=== PATIENT | male | born 1990 | race Caucasian/White ===

== ENCOUNTER 2020-06-09 13:53 | Emergency (ER) | payer MEDICAID ==
[~2020-06-09] VITALS: Ht 175.3 cm; Wt 64.0 kg
[2020-06-09 14:00] VITALS: BP 125/65
[2020-06-09] MEDS ORDERED: ACETAMINOPHEN 325 MG TABLET ONE (14:21)
[2020-06-09] MEDS ORDERED: ACETAMINOPHEN 325 MG TABLET PO ONE (14:30)
--- NOTE | 2020-06-09 15:10 | NUR ---
ALL RESULTS ARE BACK AT THIS TIME. CHART UP FOR RECHECK.
== END 2020-06-09 15:51 | disposition home or self-care (01) ==
LOC: ED 15:04
DX: S90.32XA Contusion of left foot, initial encounter (principal); X58.XXXA Exposure to other specified factors, initial encounter; Y93.89 Activity, other specified; Y92.830 Public park as the place of occurrence of the external cause; Y99.8 Other external cause status
CPT/HCPCS: 99283

== ENCOUNTER 2020-06-11 09:47 | Emergency (ER) | payer MEDICAID ==
[~2020-06-11] VITALS: Ht 175.3 cm; Wt 65.9 kg
[2020-06-11 09:56] VITALS: BP 116/59
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
[2020-06-11 10:32] LABS: BASOPHILS # (AUTO) 0.04 x10^3/uL (0-0.1); BASOPHILS % (AUTO) 0 % (0-1); EOSINOPHILS # (AUTO) 0.08 x10^3/uL (0-0.4); EOSINOPHILS % (AUTO) 1 % (1-7); LYMPHOCYTES # (AUTO) 1.31 x10^3/uL (1-3.4); LYMPHOCYTES % (AUTO) 13 % (22-44); MD NO; MEAN CORPUSCULAR HEMOGLOBIN 32.6 pg (27.5-34.5); MEAN CORPUSCULAR HGB CONC 33.1 g/dL (33.2-36.2); MEAN CORPUSCULAR VOLUME 98.4 fL (81-97); MEAN PLATELET VOLUME 7.4 fL (7.4-10.4); MONOCYTES # (AUTO) 0.71 x10^3/uL (0.2-0.8); MONOCYTES % (AUTO) 7 % (2-9); NEUTROPHILS # (AUTO) 7.98 x10^3/uL (1.8-6.8); NEUTROPHILS % (AUTO) 79 % (42-75); PLATELET COUNT 316 x10^3/uL (130-400); RED BLOOD COUNT 4.68 x10^6/uL (4.38-5.82); RED CELL DISTRIBUTION WIDTH 13.4 % (9.4-14.8)
[2020-06-11 10:41] LABS: ANION GAP 6 mmol/L (5-15); CALCIUM 9.4 mg/dL (8.5-10.1); CHLORIDE 109 mmol/L (98-107); CREATININE 1.04 mg/dL (0.7-1.3); SALICYLATE LEVEL 3.6 mg/dL (2.8-20.0)
--- NOTE | 2020-06-11 10:51 | NUR ---
resting in bed NAD on legal hold. as
--- NOTE | 2020-06-11 11:01 | NUR ---
JANNA POLLOCK AT BEDSIDE
--- NOTE | 2020-06-11 11:39 | NUR ---
psych Fermin was in room, pt tbdc when done eating. as
== END 2020-06-11 12:44 | disposition home or self-care (01) ==
LOC: ED 10:30
DX: F33.9 Major depressive disorder, recurrent, unspecified (principal); R45.851 Suicidal ideations; F17.200 Nicotine dependence, unspecified, uncomplicated
CPT/HCPCS: 36415; 80048; 80307; 82040; 85025; 99284

== ENCOUNTER 2020-07-30 22:04 | Emergency (ER) | payer MEDICAID ==
[~2020-07-30] VITALS: Ht 175.3 cm; Wt 63.2 kg
--- NOTE | 2020-07-30 23:21 | NUR ---
Patient presents to ER c/o diarrhea with low abd pain. Patient states this started with "yellow snot" and progressed to the abd. Patient has a slight cough. Patient is in NAD. Respirations even and unlabored.
[2020-07-30] MEDS ORDERED: ONDANSETRON ODT 4 MG ONE (23:29)
[2020-07-30] MEDS ORDERED: ONDANSETRON ODT 4 MG PO ONE (23:30)
[2020-07-30 23:42] LABS: BASOPHILS % (AUTO) 0 % (0-1); EOSINOPHILS % (AUTO) 1 % (1-7); LYMPHOCYTES % (AUTO) 20 % (22-44); MEAN CORPUSCULAR HEMOGLOBIN 32.9 pg (27.5-34.5); MEAN CORPUSCULAR HGB CONC 33.9 g/dL (33.2-36.2); MEAN PLATELET VOLUME 7.6 fL (7.4-10.4); MONOCYTES % (AUTO) 14 % (2-9); NEUTROPHILS % (AUTO) 65 % (42-75); PLATELET COUNT 336 x10^3/uL (130-400); RED BLOOD COUNT 4.94 x10^6/uL (4.38-5.82); RED CELL DISTRIBUTION WIDTH 15.1 % (9.4-14.8)
[2020-07-30 23:45] LABS: MD NO
[2020-07-30 23:47] LABS: MICROSCOPIC NOT IND
[2020-07-30 23:56] LABS: ALBUMIN 4.2 g/dL (3.4-5.0); CALCIUM 9.3 mg/dL (8.5-10.1); CHLORIDE 107 mmol/L (98-107)
[2020-07-31 00:01] LABS: ALANINE AMINOTRANSFERASE 33 U/L (12-78); ALKALINE PHOSPHATASE 79 U/L (45-117); BILIRUBIN,TOTAL 0.5 mg/dL (0.2-1.0); CREATININE 1.04 mg/dL (0.7-1.3); TOTAL PROTEIN 7.9 g/dL (6.4-8.2)
[2020-07-31 00:18] LABS: ANION GAP 5 mmol/L (5-15)
[2020-07-31 00:56] VITALS: BP 121/68
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
== END 2020-07-31 01:26 | disposition home or self-care (01) ==
LOC: ED 23:17
DX: K52.9 Noninfective gastroenteritis and colitis, unspecified (principal); M54.5 Low back pain; G89.29 Other chronic pain
CPT/HCPCS: 36415; 80053; 81003; 83690; 85025; 99283; Q0162

== ENCOUNTER 2020-08-09 15:40 | Emergency (ER) | payer MEDICAID ==
[~2020-08-09] VITALS: Ht 175.3 cm; Wt 58.6 kg
--- NOTE | 2020-08-09 18:05 | NUR ---
PATIENT ARRIVES BODY ACHES, SORENESS, MUCOUS, CONGESTION. THIS BEGAN THREE DAYS AGO
--- NOTE | 2020-08-09 18:47 | NUR ---
BEDSIDE REPORT FROM TYRONE RN, PT CARE TRANSFERRED AT THIS TIME.
[2020-08-09 18:59] VITALS: BP 111/64
== END 2020-08-09 19:10 | disposition home or self-care (01) ==
LOC: ED 18:30
DX: B34.9 Viral infection, unspecified (principal); M79.10 Myalgia, unspecified site; R05 Cough; R06.02 Shortness of breath; F17.210 Nicotine dependence, cigarettes, uncomplicated
CPT/HCPCS: 71045; 93005; 99283; 99406

== ENCOUNTER 2020-08-20 07:32 | Emergency (ER) | payer MEDICAID ==
[~2020-08-20] VITALS: Ht 175.3 cm; Wt 71.0 kg
--- NOTE | 2020-08-20 07:45 | NUR ---
PT IN HOSPITAL GOWN. VSS AT THIS TIME. ERP IN EVALUATING PT.
[2020-08-20] MEDS ORDERED: ACET650S21 PO (07:53)
[2020-08-20] MEDS ORDERED: MORPHINE SULFATE 4 MG/ML, 1ML IVPush PRN (08:00)
[2020-08-20] MEDS ORDERED: SODIUM CHLORIDE FLUSH 10ML SYR IVF ONE (08:00)
[2020-08-20] MEDS ORDERED: ONDANSETRON 2MG/ML, 2ML IVPush ONE (08:00)
[2020-08-20] MEDS ORDERED: MORPHINE SULFATE 4 MG/ML, 1ML ONE (08:01)
[2020-08-20] MEDS ORDERED: ONDANSETRON 2MG/ML, 2ML ONE (08:01)
[2020-08-20 08:11] LABS: BASOPHILS % (AUTO) 1 % (0-1); EOSINOPHILS % (AUTO) 1 % (1-7); LYMPHOCYTES % (AUTO) 39 % (22-44); MEAN CORPUSCULAR HEMOGLOBIN 33.4 pg (27.5-34.5); MEAN CORPUSCULAR HGB CONC 34.6 g/dL (33.2-36.2); MEAN PLATELET VOLUME 7.2 fL (7.4-10.4); MONOCYTES % (AUTO) 12 % (2-9); NEUTROPHILS % (AUTO) 48 % (42-75); PLATELET COUNT 399 x10^3/uL (130-400); RED BLOOD COUNT 5.02 x10^6/uL (4.38-5.82); RED CELL DISTRIBUTION WIDTH 14.1 % (9.4-14.8)
[2020-08-20 08:16] LABS: MD NO
[2020-08-20 08:18] LABS: ANION GAP 6 mmol/L (5-15); CALCIUM 9.6 mg/dL (8.5-10.1); CHLORIDE 106 mmol/L (98-107)
[2020-08-20 08:19] LABS: ALANINE AMINOTRANSFERASE 37 U/L (12-78); ALBUMIN 4.1 g/dL (3.4-5.0)
[2020-08-20 08:21] LABS: ALKALINE PHOSPHATASE 87 U/L (45-117); BILIRUBIN,TOTAL 0.5 mg/dL (0.2-1.0); TOTAL PROTEIN 7.9 g/dL (6.4-8.2)
--- NOTE | 2020-08-20 08:29 | NUR ---
PT GOING TO CT.
[2020-08-20] MEDS ORDERED: OMNIPAQUE 350 MG/ML, 100ML BOTTLE ONE (08:30)
--- NOTE | 2020-08-20 09:41 | NUR ---
PT RESTING IN BED. NO STATED NEEDS AT THIS TIME. WILL CONITNUE TO MONITOR. CT BACK. PT AWAITING RECHECK
[2020-08-20] MEDS ORDERED: SODIUM CHLORIDE 0.9%, 500ML IVBOLUS ONE (10:00)
[2020-08-20] MEDS ORDERED: PANTOPRAZOLE 40 MG IV IVPush SCH (10:00)
[2020-08-20] MEDS ORDERED: PANTOPRAZOLE 40 MG IV ONE (10:21)
[2020-08-20] MEDS ORDERED: DICYCLOMINE 20 MG TABLET ONE (10:21)
[2020-08-20] MEDS ORDERED: DICYCLOMINE 20 MG TABLET PO ONE (10:30)
--- NOTE | 2020-08-20 10:46 | NUR ---
PT MEDICATED AGAIN FOR PAIN PER EMAR. PT ASKING FOR WATER. PT ABLE TO DRINK WATER EASILY WITH ORDERED PAIN MED. ORDERED FLUID BOLUS HANGING. WILL CONTINUE TO MONITOR.
[2020-08-20 10:51] VITALS: BP 127/70
== END 2020-08-20 11:02 | disposition home or self-care (01) ==
LOC: ED 08:55
DX: R10.33 Periumbilical pain (principal); R11.2 Nausea with vomiting, unspecified; F17.210 Nicotine dependence, cigarettes, uncomplicated
CPT/HCPCS: 36415; 74177; 80053; 83690; 85025; 96374; 96375; 99285; C9113; J2270; J2405; J7040; Q9967

== ENCOUNTER 2020-10-09 22:05 | Emergency (ER) | payer MEDICAID ==
[~2020-10-09] VITALS: Ht 175.3 cm; Wt 63.0 kg
[~2020-10-09 22:05] MED LIST: ACET650S21 PO
[2020-10-09 22:07] VITALS: BP 129/84
--- NOTE | 2020-10-09 22:13 | NUR ---
brought in by sherlyn picked up from [facility]. patient called 911 states that she/he is suicidal. per report not taking her medication for unknown amount of time. upon arrival to ED patient on the phone yelling to her ? uncooperative to RN. patient was told to change for a gown and states " Im fine " and continue to yell on the phone.
--- NOTE | 2020-10-09 22:23 | NUR ---
patient still on the phone with his and when he was told to put down the phone and talk to this RN. states " I am talking to my , go away " this RN states are you suicidal? " patient yelled to this RN " I am not suicidal ". aware.
--- NOTE | 2020-10-09 22:26 | NUR ---
per MD ,ask the patient if he wants to be assessed and if not then patient can leave. patient declined to be assess and walk out.
== END 2020-10-09 22:32 | disposition left against medical advice (07) ==
LOC: ED 22:15
DX: F32.1 Major depressive disorder, single episode, moderate (principal); R45.851 Suicidal ideations; F17.200 Nicotine dependence, unspecified, uncomplicated; Z91.14 Patient's other noncompliance with medication regimen
CPT/HCPCS: 99284

== ENCOUNTER 2020-10-27 23:13 | Emergency (ER) | payer MEDICAID ==
[~2020-10-27] VITALS: Ht 175.3 cm; Wt 60.0 kg
[2020-10-27 23:17] VITALS: BP 126/70
--- NOTE | 2020-10-28 00:55 | NUR ---
PT DECIDED TO LEAVE AMA, PAPERS SIGNED, RISKS EXPLAINED.
== END 2020-10-28 00:56 | disposition left against medical advice (07) ==
LOC: ED 10-28 00:30
DX: S99.922A Unspecified injury of left foot, initial encounter (principal); Z53.21 Procedure and treatment not carried out due to patient leaving prior to being seen by health care provider; X58.XXXA Exposure to other specified factors, initial encounter; Y93.89 Activity, other specified; Y92.89 Other specified places as the place of occurrence of the external cause; Y99.8 Other external cause status
CPT/HCPCS: 99281

== ENCOUNTER 2020-11-11 05:52 | Emergency (ER) | payer MEDICAID ==
[~2020-11-11] VITALS: Ht 175.3 cm; Wt 60.8 kg
--- NOTE | 2020-11-11 06:08 | NUR ---
PT WALKED INTO ED [facility] FOR "A PIECE OF GLASS THAT WAS STUCK IN MY ARM AND HAS FINALLY STARTED TO WORK ITS WAY OUT." PT HAS A NOTICABLE BUMP ON RIGHT ARM. PT IS ALSO C/O LEFT FOOT HAVING PAIN. SOME BRUISING NOTICED. PT PROVIDED WARM BLANKETS FOR COMFORT, PLACED ON SPO2/BP MONITORING. ELICIA. CIARA ERP AT FOR EVAL AND POC. PT BED IN [facility], RAILS ENGAGED, CALL LIGHT ON LAP. PT REQUESTING TO USE PHONE TO CALL , DIRECTED TO PT PHONE.
[2020-11-11] MEDS ORDERED: LIDOCAINE-MPF 1%, 5ML ONE (06:13)
--- NOTE | 2020-11-11 06:31 | NUR ---
PT RESTING ON GURNEY, NAD, APPEARS COMFORTABLE, BED IN LOWEST, RAILS ENGAGED, CALL LIGHT ON LAP. NO CHANGE IN CONDITION. I&D SET UP FOR PROVIDER. CRYSTALTM.
--- NOTE | 2020-11-11 06:54 | NUR ---
report to evelyn barker, pt care transferred at this time.
[2020-11-11] MEDS ORDERED: NEOSPORIN OINT. PKT 1 PACKET ONE ×2 (07:24→08:14)
[2020-11-11] MEDS ORDERED: DIPH,PERTUSS(ACELL),TET VAC/PF 0.5 ML IM-VACC ONE ×2 (07:30→08:15)
--- NOTE | 2020-11-11 07:40 | NUR ---
PT CHART UP FOR ERP. RESULTS BACK.
[2020-11-11 08:17] VITALS: BP 119/70
--- NOTE | 2020-11-11 08:54 | NUR ---
pt discharged home with a ride from friends.
== END 2020-11-11 08:58 | disposition home or self-care (01) ==
LOC: ED 06:08
DX: S50.851A Superficial foreign body of right forearm, initial encounter (principal); S90.32XA Contusion of left foot, initial encounter; F17.200 Nicotine dependence, unspecified, uncomplicated; X58.XXXA Exposure to other specified factors, initial encounter; Y93.89 Activity, other specified; Y92.89 Other specified places as the place of occurrence of the external cause; Y99.8 Other external cause status
CPT/HCPCS: 10120; 90471; 90715; 99285

== ENCOUNTER 2020-11-30 20:11 | Emergency (ER) | payer MEDICAID ==
[~2020-11-30] VITALS: Ht 175.3 cm; Wt 63.8 kg
[2020-11-30] MEDS ORDERED: KETOROLAC 30 MG/1 ML IM ONE (20:30)
[2020-11-30] MEDS ORDERED: KETOROLAC 30 MG/1 ML ONE (21:25)
--- NOTE | 2020-11-30 21:44 | NUR ---
pt medicated and ua sent to lab
[2020-11-30 21:54] LABS: MICROSCOPIC AUTO
[2020-11-30 22:36] VITALS: BP 133/67
--- NOTE | 2020-11-30 22:36 | NUR ---
Patient given discharge instructions and they have confirmed that they understand the instructions. Patient ambulatory with steady gait.
== END 2020-11-30 22:39 | disposition home or self-care (01) ==
LOC: ED 20:41
DX: G89.11 Acute pain due to trauma (principal); M25.511 Pain in right shoulder; N30.00 Acute cystitis without hematuria; R30.0 Dysuria; F17.210 Nicotine dependence, cigarettes, uncomplicated; Z72.9 Problem related to lifestyle, unspecified
CPT/HCPCS: 73030; 81001; 87086; 87491; 87591; 96372; 99284; J1885; 87077

== ENCOUNTER 2020-12-20 23:12 | Emergency (ER) | payer MEDICAID ==
[~2020-12-20] VITALS: Ht 175.3 cm; Wt 59.7 kg
[2020-12-20 23:15] VITALS: BP 119/65
--- NOTE | 2020-12-20 23:33 | NUR ---
Pt states having a "kink in my neck" and unable to sleep because she can't get comfortable. Pt deines any numbness or tingling. Pt with strong and equal coding spec, + CSM. Pt A&O x4, busy txting on phone, and in no distress. Will monitor. Warm blanket offered and pt refused.
[2020-12-20] MEDS ORDERED: ACETAMINOPHEN 500 MG TABLET ONE (23:59)
[2020-12-20] MEDS ORDERED: METHOCARBAMOL 750 MG TABLET ONE (23:59)
[2020-12-20] MEDS ORDERED: CEFTRIAXONE 1,000 MG ONE (23:59)
[2020-12-20] MEDS ORDERED: LIDOCAINE-MPF 1%, 2ML ONE (23:59)
[2020-12-21] MEDS ORDERED: METHOCARBAMOL 750 MG TABLET PO ONE
[2020-12-21] MEDS ORDERED: ACETAMINOPHEN 500 MG TABLET PO ONE
[2020-12-21] MEDS ORDERED: CEFTRIAXONE 1,000 MG IM ONE
== END 2020-12-21 00:15 | disposition home or self-care (01) ==
LOC: ED 12-21 00:10
DX: S16.1XXA Strain of muscle, fascia and tendon at neck level, initial encounter (principal); A54.01 Gonococcal cystitis and urethritis, unspecified; J45.909 Unspecified asthma, uncomplicated; M19.90 Unspecified osteoarthritis, unspecified site; F17.200 Nicotine dependence, unspecified, uncomplicated; X58.XXXA Exposure to other specified factors, initial encounter; Y93.89 Activity, other specified; Y92.89 Other specified places as the place of occurrence of the external cause; Y99.8 Other external cause status
CPT/HCPCS: 96372; 99283; J0696

== ENCOUNTER 2020-12-25 21:58 | Emergency (ER) | payer MEDICAID ==
[~2020-12-25] VITALS: Ht 175.3 cm; Wt 59.1 kg
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
[2020-12-25 22:44] LABS: BASOPHILS % (AUTO) 1 % (0-1); EOSINOPHILS % (AUTO) 1 % (1-7); LYMPHOCYTES % (AUTO) 28 % (22-44); MEAN CORPUSCULAR HEMOGLOBIN 33.5 pg (27.5-34.5); MEAN CORPUSCULAR HGB CONC 34.6 g/dL (33.2-36.2); MEAN PLATELET VOLUME 6.8 fL (7.4-10.4); MONOCYTES % (AUTO) 7 % (2-9); NEUTROPHILS % (AUTO) 63 % (42-75); PLATELET COUNT 356 x10^3/uL (130-400); RED BLOOD COUNT 4.54 x10^6/uL (4.38-5.82); RED CELL DISTRIBUTION WIDTH 14.5 % (9.4-14.8)
[2020-12-25 22:46] LABS: MD NO
[2020-12-25 22:47] LABS: AMPHETAMINE SCREEN, URINE Positive (Negative); BARBITURATE SCREEN, URINE Negative (Negative); BENZODIAZEPINE SCREEN, URINE Negative (Negative); CANNABINOID SCREEN, URINE Positive (Negative); COCAINE SCREEN, URINE Negative (Negative); METHADONE SCREEN, URINE Negative (Negative); OPIATE SCREEN, URINE Negative (Negative)
--- NOTE | 2020-12-25 22:50 | NUR ---
SNACKS PROVIDED TO PT. CLOSE OBSERVATION IN PLACE. TAG MARKER ARRANGING FOR 1:1 SITTER FOR PT.
[2020-12-25 22:58] LABS: ALBUMIN 3.9 g/dL (3.4-5.0); ANION GAP 4 mmol/L (5-15); CALCIUM 8.6 mg/dL (8.5-10.1); CHLORIDE 108 mmol/L (98-107)
[2020-12-25 23:01] LABS: ALANINE AMINOTRANSFERASE 36 U/L (12-78); ALKALINE PHOSPHATASE 79 U/L (45-117); BILIRUBIN,TOTAL 0.2 mg/dL (0.2-1.0); SALICYLATE LEVEL 3.5 mg/dL (2.8-20.0); TOTAL PROTEIN 7.2 g/dL (6.4-8.2)
--- NOTE | 2020-12-26 00:35 | NUR ---
TP RN: Followed up on telepsych page. Stated there were "a few emergent consults ahead of this patient."
--- NOTE | 2020-12-26 01:05 | NUR ---
PT SLEEPING IN ER ED, PT ROOM SI SECURE, PT WITHIN SITE OF STAFF. PT RESTING IN BED. PT HAS NO CURRENT WANTS OR NEEDS AT THIS TIME.
--- NOTE | 2020-12-26 02:01 | NUR ---
PT RESTING IN ER ED, PT ROOM SI SECURE, PT WITHIN SITE OF STAFF. PT RESTING IN BED. PT HAS NO CURRENT WANTS OR NEEDS AT THIS TIME.
--- NOTE | 2020-12-26 07:00 | NUR ---
SBAR BEDSIDE HAND-OFF REPORT RECEIVED FROM CLAY GIRON. ASSUMING CARE OF PATIENT. TELEPSYCH MD BEGINNING CONSULTATION AT THIS TIME.
--- NOTE | 2020-12-26 09:15 | NUR ---
RECEIVED REPORT FROM YVES WILLIAMSON. PT DENNISE OBSERVED BY SITTER AND GIVEN BREAKFAST.
[2020-12-26 09:16] VITALS: BP 132/82
--- NOTE | 2020-12-26 09:17 | NUR ---
SBAR HAND-OFF REPORT TO CLAY NGUYEN.
--- NOTE | 2020-12-26 10:06 | NUR ---
PAUL FROM [facility] CALLED TO CHECK WITH PATIENT TO SEE IF SHE IS COMFORABLE IN A DOUBLE OCCUPANCY ROOM WITH ANOTHER [id number] TRANSGENDER PATIENT. PT AGREES AND IS OK WITH THIS. PAUL NOTIFIED. PSYCH JANNA DENISE, AT BEDSIDE.
[2020-12-26] MEDS ORDERED: NICOTINE 21 MG/24 HR PATCH.TD24 TD ONE (10:30)
[2020-12-26] MEDS ORDERED: OXCARBAZEPINE 150 MG TABLET PO SCH (10:30)
[2020-12-26] MEDS ORDERED: GABAPENTIN 300 MG CAPSULE PO SCH (10:30)
[2020-12-26] MEDS ORDERED: BUPROPION SR 100 MG TABLET PO SCH (10:30)
--- NOTE | 2020-12-26 10:52 | NUR ---
TOOK REPORT FROM WENDY WILLIAMSON
[2020-12-26] MEDS ORDERED: NICOTINE 21 MG/24 HR PATCH.TD24 ONE (11:01)
[2020-12-26] MEDS ORDERED: GABAPENTIN 300 MG CAPSULE ONE (11:02)
--- NOTE | 2020-12-26 11:25 | NUR ---
SBAR TELEPHONE HAND-OFF REPORT GIVEN TO CLAY FORD IN U.
--- NOTE | 2020-12-26 12:03 | NUR ---
refused nicotine patch. pt states it gives her nightmares and wants to take it later
== END 2020-12-26 12:28 | disposition home or self-care (01) ==
LOC: ED 22:04
DX: R45.851 Suicidal ideations (principal); Z20.822 Contact with and (suspected) exposure to COVID-19; F32.9 Major depressive disorder, single episode, unspecified; Z72.9 Problem related to lifestyle, unspecified; F15.129 Other stimulant abuse with intoxication, unspecified; F17.200 Nicotine dependence, unspecified, uncomplicated; J45.909 Unspecified asthma, uncomplicated
CPT/HCPCS: 36415; 80053; 80299; 80307; 80320; 80329; 85025; 87426; 99284; G0480

== ENCOUNTER 2020-12-26 10:40 | Inpatient (IN) | payer MEDICAID ==
[~2020-12-26] VITALS: Ht 175.3 cm; Wt 57.2 kg
[2020-12-26] MEDS ORDERED: POLYETHYLENE GLYCOL 17 GM PACKET PO PRN (11:30)
[2020-12-26] MEDS ORDERED: ONDANSETRON ODT 4 MG PO PRN (11:30)
[2020-12-26] MEDS ORDERED: BISACODYL 10 MG SUPP PR PRN (11:30)
[2020-12-26 13:26] VITALS: BP 115/73
[2020-12-26] MEDS ORDERED: NICOTINE 14MG/24 HR PATCH.TD24 TD SCH (14:00)
[2020-12-26] MEDS ORDERED: ALBUTEROL HFA 90 MCG/SPRAY INH PRN (17:00)
[2020-12-26 17:30] LABS: MICROSCOPIC INDICATED
[2020-12-26 19:53] VITALS: BP 112/61
[2020-12-26] MEDS: ACETAMINOPHEN 325 MG TABLET PO PRN (20:03)
[2020-12-27 06:30] LABS: CHOL/HDL RATIO 2.7; FREE T4 (FREE THYROXINE) 0.78 ng/dL (0.76-1.46); LDL/HDL RATIO 1.3 (0.5-3.0)
[2020-12-27 07:51] VITALS: BP 109/68
[2020-12-27] MEDS: HYDROXYZINE PAMOATE 50MG CAP PO PRN ×2 (08:25→20:46)
[2020-12-27] MEDS: OXCARBAZEPINE 300MG TABLET PO SCH (08:25)
[2020-12-27] MEDS: NICOTINE 14MG/24 HR PATCH.TD24 TD SCH (08:25)
[2020-12-27] MEDS: BUPROPION SR 100 MG TABLET PO SCH (08:25)
[2020-12-27] MEDS: CHOLECALCIFEROL 1,000 UNIT TABLET PO SCH (14:35)
[2020-12-27 19:37] VITALS: BP 105/63
[2020-12-27] MEDS: ACETAMINOPHEN 325 MG TABLET PO PRN (20:34)
[2020-12-28 07:44] VITALS: BP 117/62
[2020-12-28] MEDS: BUPROPION SR 100 MG TABLET PO SCH (07:54)
[2020-12-28] MEDS: CHOLECALCIFEROL 1,000 UNIT TABLET PO SCH (07:54)
[2020-12-28] MEDS: OXCARBAZEPINE 300MG TABLET PO SCH (07:54)
[2020-12-28] MEDS: NICOTINE 14MG/24 HR PATCH.TD24 TD SCH (07:56)
[2020-12-28] MEDS: ACETAMINOPHEN 325 MG TABLET PO PRN ×2 (15:58→20:08)
[2020-12-28] MEDS: BUSPIRONE 5 MG TABLET PO SCH (17:00)
[2020-12-28 19:23] VITALS: BP 115/71
[2020-12-28] MEDS: QUETIAPINE 100MG TABLET PO SCH (20:08)
[2020-12-29 07:31] VITALS: BP 108/65
[2020-12-29] MEDS: OXCARBAZEPINE 300MG TABLET PO SCH (07:41)
[2020-12-29] MEDS: CHOLECALCIFEROL 1,000 UNIT TABLET PO SCH (07:41)
[2020-12-29] MEDS: BUSPIRONE 5 MG TABLET PO SCH ×3 (07:41→21:21)
[2020-12-29] MEDS: ESTRADIOL 2 MG TABLET PO SCH ×2 (07:42→21:20)
[2020-12-29] MEDS: BUPROPION SR 100 MG TABLET PO SCH (07:42)
[2020-12-29] MEDS: SPIRONOLACTONE 100 MG TABLET PO SCH ×2 (07:42→21:21)
[2020-12-29] MEDS: NICOTINE 14MG/24 HR PATCH.TD24 TD SCH (07:44)
[2020-12-29 19:24] VITALS: BP 131/84
[2020-12-29] MEDS: QUETIAPINE 100MG TABLET PO SCH (21:21)
[2020-12-29] MEDS: ACETAMINOPHEN 325 MG TABLET PO PRN (21:21)
[2020-12-30 07:30] VITALS: BP 133/69
[2020-12-30] MEDS: ESTRADIOL 2 MG TABLET PO SCH (07:54)
[2020-12-30] MEDS: SPIRONOLACTONE 100 MG TABLET PO SCH (07:54)
[2020-12-30] MEDS: NICOTINE 14MG/24 HR PATCH.TD24 TD SCH (07:55)
[2020-12-30] MEDS: BUPROPION SR 100 MG TABLET PO SCH (07:55)
[2020-12-30] MEDS: OXCARBAZEPINE 300MG TABLET PO SCH (07:55)
[2020-12-30] MEDS: BUSPIRONE 5 MG TABLET PO SCH (07:55)
[2020-12-30] MEDS: CHOLECALCIFEROL 1,000 UNIT TABLET PO SCH (07:55)
[2020-12-30] MEDS ORDERED: BUSP5TAB2 PO (13:38)
[2020-12-30] MEDS ORDERED: OXCA300T19 PO (13:38)
[2020-12-30] MEDS ORDERED: CHOL10003 PO (13:38)
[2020-12-30] MEDS ORDERED: NICO-486 TD (13:38)
[2020-12-30] MEDS ORDERED: HYDR50CA2 PO (13:38)
[2020-12-30] MEDS ORDERED: SPIR100T PO (13:38)
[2020-12-30] MEDS ORDERED: QUET100T PO (13:38)
[2020-12-30] MEDS ORDERED: BUPR-173 PO (13:38)
[2020-12-30] MEDS ORDERED: ESTR2TAB PO (13:38)
[2020-12-30] MEDS ORDERED: ALBU18HF INH (13:38)
== END 2020-12-30 14:15 | disposition home or self-care (01) | DRG 885 ==
LOC: 3E 12:30
PROVIDERS: ADMIT Psychiatry & Neurology Psychosomatic Medicine; ATTEND Psychiatry & Neurology Psychosomatic Medicine
DX: F31.5 Bipolar disorder, current episode depressed, severe, with psychotic features (principal); K57.92 Diverticulitis of intestine, part unspecified, without perforation or abscess without bleeding; R45.851 Suicidal ideations; F15.23 Other stimulant dependence with withdrawal; F64.9 Gender identity disorder, unspecified; J45.909 Unspecified asthma, uncomplicated; M19.90 Unspecified osteoarthritis, unspecified site; M54.30 Sciatica, unspecified side; D72.829 Elevated white blood cell count, unspecified; F12.90 Cannabis use, unspecified, uncomplicated; F17.210 Nicotine dependence, cigarettes, uncomplicated; Z91.5 Personal history of self-harm; Z79.899 Other long term (current) drug therapy; Z79.891 Long term (current) use of opiate analgesic; Z79.01 Long term (current) use of anticoagulants; Z88.8 Allergy status to other drugs, medicaments and biological substances; Z82.49 Family history of ischemic heart disease and other diseases of the circulatory system
CPT/HCPCS: 36415; 71045; 80061; 81001; 84439; 84443; 93005